=== PATIENT | female | born 1980 | race Caucasian/White ===

== ENCOUNTER → 2023-08-20 17:27 | Outpatient (REF) | payer OTHER, SELFPAY | LOC: HWWDC 17:27 | PROVIDERS: ATTENDING PHYSICIAN Nurse Practitioner Family | DX: Z12.31 Encounter for screening mammogram for malignant neoplasm of breast (principal) | CPT/HCPCS: 77063; 77067 ==

== ENCOUNTER → 2023-10-31 09:58 | Outpatient (REF) | payer OTHER, SELFPAY | LOC: WDC 09:58 | PROVIDERS: ATTENDING PHYSICIAN Nurse Practitioner Family | DX: R92.2 Inconclusive mammogram (principal) | CPT/HCPCS: 76641 ==

== ENCOUNTER → 2025-05-23 14:35 | Outpatient (REF) | payer OTHER, SELFPAY | LOC: HWRAD 14:35 | DX: G44.209 Tension-type headache, unspecified, not intractable (principal); M54.2 Cervicalgia | CPT/HCPCS: 72050 ==